=== PATIENT | female | born 1975 | race Caucasian/White ===

== ENCOUNTER 2017-10-29 12:04 | Emergency (ER) | payer MEDICAID ==
[~2017-10-29] VITALS: Ht 162.6 cm; Wt 78.0 kg
[~2017-10-29 12:04] MED LIST: CYCL-1 PO; METH4TAB3 PO; METH500T PO
[2017-10-29 12:30] VITALS: BP 141/82
[2017-10-29] MEDS ORDERED: ALBU18HF2 INH (13:08)
== END 2017-10-29 13:24 | disposition home or self-care (01) ==
LOC: ER 12:04
DX: J45.909 Unspecified asthma, uncomplicated (principal); G89.29 Other chronic pain; F17.200 Nicotine dependence, unspecified, uncomplicated; F15.10 Other stimulant abuse, uncomplicated
CPT/HCPCS: 99283

== ENCOUNTER 2019-08-24 14:57 | Emergency (ER) | payer MEDICAID ==
[~2019-08-24] VITALS: Ht 162.6 cm; Wt 68.0 kg
[~2019-08-24 14:57] MED LIST changes: +ALBU18HF2 INH
[2019-08-24 15:35] VITALS: BP 144/85
[2019-08-24] MEDS ORDERED: ketorolac tromethamine 15mg/ml inj. IM ONE (15:55)
== END 2019-08-24 16:15 | disposition home or self-care (01) ==
LOC: ER 14:58
DX: S20.211A Contusion of right front wall of thorax, initial encounter (principal); J45.909 Unspecified asthma, uncomplicated; G89.29 Other chronic pain; F15.90 Other stimulant use, unspecified, uncomplicated; Z79.899 Other long term (current) drug therapy; Y04.8XXA Assault by other bodily force, initial encounter; Y93.89 Activity, other specified; Y92.89 Other specified places as the place of occurrence of the external cause; Y99.8 Other external cause status
CPT/HCPCS: 96372; 99283; J1885

== ENCOUNTER 2019-09-10 13:53 | Emergency (ER) | payer MEDICAID ==
[~2019-09-10] VITALS: Ht 162.6 cm; Wt 72.0 kg
[2019-09-10 14:17] VITALS: BP 132/92
== END 2019-09-10 17:10 | disposition left against medical advice (07) ==
LOC: ER 13:54
DX: N93.9 Abnormal uterine and vaginal bleeding, unspecified (principal); Z53.21 Procedure and treatment not carried out due to patient leaving prior to being seen by health care provider